=== PATIENT | female | born 1955 | race Caucasian/White ===

== ENCOUNTER 2016-10-24 09:59 | Outpatient (CLI) | payer OTHER | END 2016-10-24 10:00 | disposition home or self-care (01) | DX: M85.80 Other specified disorders of bone density and structure, unspecified site (principal); Z78.0 Asymptomatic menopausal state ==

== ENCOUNTER 2016-11-08 09:54 | Outpatient (CLI) | payer OTHER | END 2016-11-08 09:55 | disposition home or self-care (01) | DX: M54.9 Dorsalgia, unspecified (principal) ==

== ENCOUNTER 2017-06-07 08:08 | Outpatient (CLI) | payer OTHER ==
--- NOTE | 2017-06-27 12:34 | Mammography Report ---
DIGITAL BILATERAL SCREENING MAMMOGRAM: 06/07/2017 COMPARISON STUDY: None. TECHNIQUE: Bilateral MLO and CC breast views. FINDINGS: In the right upper anterior breast at superficial depth, seen on the MLO view only, is a f ocus of architectural distortion. No mass or concerning cluster of microcalcifications is seen in other regards. IMPRESSION: 1. BIRADS CATEGORY 0 - ADDITIONAL IMAGING IS REQUIRED. 2. RECOMMEND SPOT COMPRESSION VIEWS OF THE RIGHT UPPER BREAST AT ANTERIOR DEPTH TO EVALUATE A POSSIB LE AREA OF ARCHITECTURAL DISTORTION. IF CLINICALLY DESIRED, HOWEVER, THREE-DIMENSIONAL TOMOGRAPHIC B REAST IMAGING MAY BE CONSIDERED, BUT IS NOT AVAILABLE AT THIS FACILITY. STANDARD QUALIFYING STATEMENTS 1. This examination was reviewed with the aid of Computer-Aided Detection (CAD). 2. A negative or benign imaging report should not delay biopsy if clinically suspicious findings are present. Consider surgical consultation if warranted. More than 5% of cancers are not identified by i maging. 3. Dense breasts may obscure an underlying neoplasm. JOB #: [id number] EXT JOB #:[id number]
== END 2017-06-07 08:09 | disposition home or self-care (01) ==
LOC: DI 08:08
PROVIDERS: ATTEND Physician Assistant Medical
DX: Z12.31 Encounter for screening mammogram for malignant neoplasm of breast (principal); R92.8 Other abnormal and inconclusive findings on diagnostic imaging of breast
CPT/HCPCS: 77067

== ENCOUNTER 2017-06-08 07:35 | Outpatient (CLI) | payer OTHER ==
[2017-06-08 07:54] LABS: BASOPHILS # (AUTO) 0.1 10^3/uL (0.0-0.1); BASOPHILS % (AUTO) 1.1 %; EOSINOPHILS # (AUTO) 0.3 10^3/uL (0.0-0.7); EOSINOPHILS % (AUTO) 4.3 %; HGB - HEMOGLOBIN 13.9 g/dL (12.0-16.0); LYMPHOCYTES # (AUTO) 1.8 10^3/uL (1.5-3.5); LYMPHOCYTES % (AUTO) 30.2 %; MEAN CORPUSCULAR HEMOGLOBIN 25.9 pg (27.0-31.0); MEAN CORPUSCULAR HGB CONC 32.4 g/dL (32.0-36.0); MEAN CORPUSCULAR VOLUME 79.8 fL (81.0-99.0); MEAN PLATELET VOLUME 8.1 fL (7.9-10.8); MONOCYTES # (AUTO) 0.3 10^3/uL (0.0-1.0); MONOCYTES % (AUTO) 5.2 %; NEUTROPHILS # (AUTO) 3.6 10^3/uL (1.5-6.6); NEUTROPHILS % (AUTO) 59.2 %; NUCLEATED RED BLOOD CELLS AUTO 0.1 /100WBC; RED BLOOD COUNT 5.39 10^6/uL (4.20-5.40); RED CELL DISTRIBUTION WIDTH 15.5 % (12.0-15.0)
[2017-06-08 08:38] LABS: ALBUMIN/GLOBULIN RATIO 1.6 (1.0-2.2); BILIRUBIN,TOTAL 0.7 mg/dL (0.2-1.0); BUN - BLOOD UREA NITROGEN 15 mg/dL (6-20); CALCIUM 9.8 mg/dL (8.5-10.3); CARBON DIOXIDE - CO2 28 mmol/L (21-32); CHLORIDE 104 mmol/L (101-111); CHOL/HDL RATIO 3.7 (<4.4); CHOLESTEROL 227 mg/dL; GFR - MDRD 56 (>89); GLUCOSE 96 mg/dL (70-100); HDL CHOLESTEROL 61 mg/dL; LDL/HDL RATIO 2.2 (<4.4); POTASSIUM 4.6 mmol/L (3.5-5.0); SODIUM 141 mmol/L (135-145); TOTAL PROTEIN 7.4 g/dL (6.7-8.2); TRIGLYCERIDES 146 mg/dL; VLDL CHOLESTEROL 29 mg/dL
== END 2017-06-08 07:36 | disposition home or self-care (01) ==
LOC: LAB 07:35
PROVIDERS: ATTEND Physician Assistant Medical
DX: Z00.00 Encounter for general adult medical examination without abnormal findings (principal)
CPT/HCPCS: 36415; 80050; 80061

== ENCOUNTER 2017-07-12 13:56 | Outpatient (CLI) | payer OTHER ==
--- NOTE | 2017-07-12 16:00 | Mammography Report ---
DIAGNOSTIC RIGHT MAMMOGRAM: 07/12/2017 CLINICAL INDICATION: Possible architectural distortion right upper anterior breast. TECHNIQUE: Right true lateral, repeat MLO, spot compression views. COMPARISON: 06/07/2017 FINDINGS: The right breast again demonstrates heterogeneously dense fibroglandular parenchyma. The questioned architectural distortion in the right upper central breast does not persist on additional imaging. A coarse, typically benign calcification is present. No underlying mass lesion is identifi ed. IMPRESSION: BENIGN FINDINGS. RECOMMENDATION: Routine annual screening unless otherwise clinically indicated. BIRADS CATEGORY 2 - BENIGN FINDINGS. STANDARD QUALIFYING STATEMENTS 1. This examination was reviewed with the aid of Computer-Aided Detection (CAD). 2. A negative or benign imaging report should not delay biopsy if clinically suspicious findings are present. Consider surgical consultation if warranted. More than 5% of cancers are not identified by i maging. 3. Dense breasts may obscure an underlying neoplasm. JOB #: [id number] EXT JOB #:[id number]
== END 2017-07-12 13:57 | disposition home or self-care (01) ==
LOC: DI 13:56
PROVIDERS: ATTEND Physician Assistant Medical
DX: R92.8 Other abnormal and inconclusive findings on diagnostic imaging of breast (principal)

== ENCOUNTER 2017-08-19 12:33 | Emergency (ER) | payer OTHER ==
[2017-08-19] MEDS ORDERED: KETOROLAC 60 MG/2 ML VIAL IM STA (13:14)
[2017-08-19] MEDS ORDERED: DEXAMETHASONE 10 MG/ML VIAL PO STA (13:14)
--- NOTE | 2017-08-19 13:18 | ED Physician Documentation ---
PD HPI LOWER EXT INJURY - Stated complaint Stated Complaint: R LEG PX - Chief complaint Chief Complaint: Ext Problem - History obtained from History obtained from: Patient, Family - History of Present Illness PD HPI LOW EXT INJURY LOCATION: Right, Lower leg Type of injury: Other (excessive walking) Where injury occurred: Street Timing - onset: How many weeks ago (2) Timing - duration: Weeks (2) Timing - details: Gradual onset, Still present Improved by: Rest Worsened by: Moving, Other (weight bearing) Associated symptoms: No: Weakness, Numbness, Tingling, Swelling, Discolored Contributing factors: Other (on plavix) Similar symptoms before: Diagnosis (scaitica) Recently seen: Emergency Dept - Additional information Additional information: 62-year-old female with a prior history of complicated vascular disease was on vacation in [place] she went out on a walk and ended up walking much further than she expected. She walked about 3 miles. She had a bit of pain in her back and down her right leg following that and the next day went on a bicycle ride. She had significantly worse pain following that and went to the emergency department in [place]. She was diagnosed with sciatica and getting some Valium. She did not have relief of her pain with use of the Valium. She has had a resolution of the pain up in the hip and thigh and now the pain has settled to being just from the knee to the calf down to the ankle on the right lateral aspect the pain is worse with weightbearing and is not relieved with rest. She denies any history of claudication that is ever resulted in any pain. She does have fatigue of her legs but not pain. She does not have any change the color of the skin of the lower extremity and she does not have specific point tenderness to the lower extremity. Review of Systems Constitutional: denies: Fever Eyes: denies: Decreased vision Ears: denies: Ear pain Nose: denies: Congestion Throat: denies: Sore throat Cardiac: denies: Chest pain / pressure Respiratory: denies: Dyspnea, Cough GI: denies: Abdominal Pain, Nausea, Vomiting : denies: Dysuria, Frequency Skin: denies: Rash Musculoskeletal: reports: Back pain, Extremity pain, Pain with weight bearing. denies: Neck pain Neurologic: denies: Generalized weakness, Focal weakness, Numbness PD PAST MEDICAL HISTORY - Past Medical History Cardiovascular: Hypertension, Other Respiratory: COPD Neuro: None Endocrine/Autoimmune: None GI: None : Incontinence, Nocturia, Frequency HEENT: Dental implants Psych: None Musculoskeletal: Other Derm: None - Past Surgical History Past Surgical History: Yes General: Appendectomy /DEEP TISSUE MASSAGE THERAPIST: Tubal ligation Cardiovascular: AAA, Other - Present Medications Home Medications: Ambulatory Orders Medication Instructions Recorded Confirmed Metoprolol Succinate 100 mg PO BID 08/08/15 08/19/17 Clopidogrel [Plavix] 75 mg PO DAILY 08/19/17 08/19/17 HYDROcod/ACETAM 5/325 [Floyd 5/325] 1 - 2 ea PO Q6H PRN #15 tablet 08/19/17 - Allergies Allergies/Adverse Reactions: Allergies Allergy/AdvReac Type Severity Reaction Status Date / Time Penicillins Allergy Rash Verified 08/19/17 12:47 - Social History Does the pt smoke?: No Smoking Status: Former smoker Does the pt drink ETOH?: Yes Does the pt have substance abuse?: No PD ED PE NORMAL - Vitals Vital signs reviewed: Yes (Hypertensive) - General General: Alert and oriented X 3, No acute distress, Well developed/nourished - HEENT HEENT: Atraumatic, PERRL, EOMI - Respiratory Respiratory: No respiratory distress - Derm Derm: Normal color, Warm and dry, No rash - Extremities Extremities: No deformity, No tenderness to palpate, Normal ROM s pain, No edema , No calf tenderness / cord, Other (With compression of the lower extremity from the heel to the knee there is no change in the pain in the lateral calf. With weightbearing there is pain in the lateral calf worse. There is no pain in the sciatic notch or in the back and this had been painful previously.) - Neuro Neuro: Alert and oriented X 3, No motor deficit, No sensory deficit, Normal speech Eye Opening: Spontaneous Motor: Obeys Commands Verbal: Oriented GCS Score: 15 Results - Vitals Vitals: Vital Signs - 24 hr 08/19/17 08/19/17 12:43 12:50 Temperature 36.3 C L Heart Rate 68 Blood Pressure 135/64 H O2 Saturation 100 Oxygen O2 Source Room air PD MEDICAL DECISION MAKING - ED course Complexity details: reviewed old records, considered differential, d/w patient, d/w family ED course: 62-year-old female with what appears to be sciatica that is not resolved over the past 2 weeks. I am not able to elicit anything from the patient's history or examination that would that would indicate ischemic limb pain. I do suspect her diagnosis is sciatica and this appears to be progressing toward improvement with localization of the pain now isolated to the calf. She has no swelling of the leg ankle or foot and I am not concerned about DVT. Here in the emergency department today she is given a dose of dexamethasone 10 mg orally and 60 mg of Toradol IM. Departure - Departure Disposition: 01 Home, Self Care Clinical Impression: Sciatica Qualifiers: Laterality: right Qualified Code(s): M54.31 - Sciatica, right side Condition: Stable Instructions: ED Sciatica Follow-Up: Mala Flores PA-C [Primary Care Provider] - Prescriptions: HYDROcod/ACETAM 5/325 [Floyd 5/325] 1 - 2 ea PO Q6H PRN #15 tablet PRN Reason: Pain
[2017-08-19] MEDS ORDERED: CHERRY SYRUP 10 ML UDC PO ONE (13:26)
[2017-08-19 13:59] VITALS: BP 118/70
== END 2017-08-19 13:56 | disposition home or self-care (01) ==
LOC: ED 12:33
DX: M54.31 Sciatica, right side (principal); I10 Essential (primary) hypertension; J44.9 Chronic obstructive pulmonary disease, unspecified; Z87.891 Personal history of nicotine dependence
CPT/HCPCS: 96372; 99283; A9270

== ENCOUNTER 2018-06-11 07:28 | Outpatient (CLI) | payer MEDICARE, OTHER ==
[2018-06-11 07:53] LABS: BASOPHILS # (AUTO) 0.1 10^3/uL (0.0-0.1); EOSINOPHILS # (AUTO) 0.4 10^3/uL (0.0-0.7); EOSINOPHILS % (AUTO) 5.7 %; HGB - HEMOGLOBIN 12.8 g/dL (12.0-16.0); LYMPHOCYTES # (AUTO) 1.8 10^3/uL (1.5-3.5); LYMPHOCYTES % (AUTO) 26.8 %; MEAN CORPUSCULAR HEMOGLOBIN 26.4 pg (27.0-31.0); MEAN CORPUSCULAR HGB CONC 32.5 g/dL (32.0-36.0); MEAN CORPUSCULAR VOLUME 81.2 fL (81.0-99.0); MONOCYTES # (AUTO) 0.4 10^3/uL (0.0-1.0); MONOCYTES % (AUTO) 5.3 %; NEUTROPHILS # (AUTO) 4.2 10^3/uL (1.5-6.6); NEUTROPHILS % (AUTO) 61.2 %; PLT - PLATELET COUNT 232 10^3/uL (130-450); RED BLOOD COUNT 4.83 10^6/uL (4.20-5.40); RED CELL DISTRIBUTION WIDTH 15.2 % (12.0-15.0); WHITE BLOOD COUNT 6.8 x10^3/uL (4.8-10.8)
[2018-06-11 08:19] LABS: % IRON SATURATION 12 % (20-50); ALBUMIN 4.5 g/dL (3.2-5.5); ALBUMIN/GLOBULIN RATIO 1.5 (1.0-2.2); ALKALINE PHOSPHATASE 72 IU/L (42-121); ALT ALANINE AMINOTRANSFERASE 11 IU/L (10-60); AST ASPARTATE AMINOTRANSFERASE 17 IU/L (10-42); BILIRUBIN,TOTAL 0.6 mg/dL (0.2-1.0); BUN - BLOOD UREA NITROGEN 16 mg/dL (6-20); CALCIUM 9.4 mg/dL (8.5-10.3); CARBON DIOXIDE - CO2 28 mmol/L (21-32); CHLORIDE 101 mmol/L (101-111); CHOL/HDL RATIO 3.4 (<4.4); CHOLESTEROL 238 mg/dL; CREATININE 0.9 mg/dL (0.4-1.0); GFR - MDRD 63 (>89); GLUCOSE 99 mg/dL (70-100); HDL CHOLESTEROL 70 mg/dL; IRON 50 ug/dL (28-170); LDL CHOLESTEROL,CALCULATED 141 mg/dL; SODIUM 137 mmol/L (135-145); TOTAL IRON BINDING CAPACITY 421 ug/dL (250-450); TOTAL PROTEIN 7.6 g/dL (6.7-8.2); TRANSFERRIN 301 mg/dL (192-382); VLDL CHOLESTEROL 27 mg/dL
== END 2018-06-11 07:29 | disposition home or self-care (01) ==
LOC: LAB 07:28
PROVIDERS: ATTEND Physician Assistant
DX: Z00.00 Encounter for general adult medical examination without abnormal findings (principal); I10 Essential (primary) hypertension; D64.9 Anemia, unspecified; E78.2 Mixed hyperlipidemia
CPT/HCPCS: 36415; 80053; 80061; 83540; 83721; 84466; 85025

== ENCOUNTER 2018-07-15 09:45 | Outpatient (CLI) | payer MEDICARE, OTHER ==
--- NOTE | 2018-07-16 14:36 | Mammography Report ---
Reason: ANNUAL SCREENING Procedure Date: 07/15/2018 Accession Number: [id number] / [id number] Procedure: [facility] - Screening Mammo w/Ryne CPT Code: FULL RESULT: EXAM: Screening Mammo w/Ryne DATE: 07/15/2018 11:06 AM CLINICAL HISTORY: Routine screening. No reported personal or family history of breast cancer. TECHNIQUE: Bilateral CC and MLO views were obtained. COMPARISON: 06/07/2017 FINDINGS: The breasts demonstrate heterogeneously dense fibroglandular parenchyma bilaterally. Bilateral breasts: There are no suspicious masses, calcifications or areas of distortion. IMPRESSION: Negative examination RECOMMENDATION: Routine annual screening unless otherwise clinically indicated. BI-RADS CATEGORY 1: Negative STANDARD QUALIFYING STATEMENTS: 1. This examination was not reviewed with the aid of Computer-Aided Detection (CAD). 2. A negative or benign imaging report should not preclude biopsy if clinically suspicious findings are present. 3. Dense breasts may obscure an underlying neoplasm. 4. This examination was reviewed with the aid of 3D breast imaging (tomosynthesis).
== END 2018-07-15 09:46 | disposition home or self-care (01) ==
LOC: DI 09:45
PROVIDERS: ATTEND Physician Assistant Medical
DX: Z12.31 Encounter for screening mammogram for malignant neoplasm of breast (principal)
CPT/HCPCS: 77063; 77067

== ENCOUNTER 2018-11-02 20:42 | Outpatient (CLI) | payer MEDICARE, OTHER | END 2018-11-02 20:43 | disposition critical access hospital (66) | LOC: EMS 20:42 | PROVIDERS: ATTEND Surgery | DX: R07.9 Chest pain, unspecified (principal) | CPT/HCPCS: A0425; A0427 ==

== ENCOUNTER 2018-11-02 20:50 | Emergency (ER) | payer MEDICARE, OTHER ==
[2018-11-02] MEDS ORDERED: SODIUM CHLORIDE 0.9% 1,000 ML IV ONE (21:00)
[2018-11-02] MEDS ORDERED: ONDANSETRON 4 MG/2 ML VIAL IVP STA (21:00)
[2018-11-02] MEDS ORDERED: ONDANSETRON 4 MG/2 ML VIAL ONE (21:06)
--- NOTE | 2018-11-02 21:09 | ED Physician Documentation ---
PD HPI CHEST PAIN - Stated complaint Stated Complaint: CP - Chief complaint Chief Complaint: Cardiac - History obtained from History obtained from: Patient, Family - History of Present Illness Timing - onset: Enter time (1800), Today Timing - onset during: Rest Timing - duration: Hours Timing - details: Abrupt onset, Still present Quality: Sharp, Pain Location: Right chest Radiation: Back Improved by: Rest Worsened by: Inspiration, Movement, Palpation, Position Associated symptoms: Shortness of air, Nausea, Feeling faint / dizzy Similar symptoms before: Diagnosis (aortic disection) Recently seen: Not recently seen - Additional information Additional information: 63-year-old female who has had aortic dissection and endovascular stenting of both abdomen and thoracic aorta done in 2014 in 2016 was well and doing her usual activities and last night began to feel fatigued. This evening at approximately 6 PM she began to have pain in her right chest and this is become severe and she is developed some nausea as well. Review of Systems Constitutional: denies: Fever Eyes: denies: Decreased vision Ears: denies: Ear pain Nose: denies: Rhinorrhea / runny nose, Congestion Throat: denies: Oral lesions / sores, Sore throat Cardiac: reports: Chest pain / pressure. denies: Palpitations, Pedal edema, Calf pain Respiratory: denies: Dyspnea, Cough GI: reports: Abdominal Pain, Nausea, Vomiting : denies: Dysuria PD PAST MEDICAL HISTORY - Past Medical History Cardiovascular: Hypertension, Other Respiratory: COPD Endocrine/Autoimmune: None GI: None : Incontinence, Nocturia, Frequency HEENT: Dental implants Psych: None Musculoskeletal: Other Derm: None - Past Surgical History Past Surgical History: Yes General: Appendectomy /SENIOR INTERIOR DESIGNER: Tubal ligation Cardiovascular: AAA, Other - Present Medications Home Medications: Ambulatory Orders Medication Instructions Recorded Confirmed RX: Metoprolol Succinate 100 mg PO BID 08/08/15 11/02/18 Clopidogrel [Plavix] 75 mg PO DAILY 08/19/17 11/02/18 RX: Lisinopril 20 mg PO DAILY 11/02/18 11/02/18 - Allergies Allergies/Adverse Reactions: Allergies Allergy/AdvReac Type Severity Reaction Status Date / Time Penicillins Allergy Rash Verified 11/02/18 21:00 - Social History Does the pt smoke?: No Smoking Status: Never smoker Does the pt drink ETOH?: Yes Does the pt have substance abuse?: No - Immunizations Immunizations are current?: Yes PD ED PE NORMAL - Vitals Vital signs reviewed: Yes (hypotensive ) - General General: Alert and oriented X 3, Well developed/nourished, Other (appears pale and in acute distress.) - HEENT HEENT: Atraumatic, PERRL, EOMI - Neck Neck: Supple, no meningeal sign, No bony TTP - Cardiac Cardiac: RRR, Other (2/6 holosystolic murmer at LSB) - Respiratory Respiratory: Other (tachypneic with diminished breath sounds ) - Abdomen Abdomen: Soft, Other (tender in right flant ) - Back Back: No spinal TTP - Derm Derm: Normal color, Warm and dry, No rash - Extremities Extremities: No deformity, No edema - Neuro Neuro: Alert and oriented X 3, relocation specialist 2-12 intact, No motor deficit, No sensory deficit, Normal speech Eye Opening: Spontaneous Motor: Obeys Commands Verbal: Oriented GCS Score: 15 - Psych Psych: Normal mood, Normal affect Results - Vitals Vitals: Vital Signs - 24 hr 11/02/18 11/02/18 11/02/18 20:50 21:11 21:30 Temperature 35.7 C L 35.9 C L Heart Rate 74 66 62 Respiratory 16 14 18 Rate Blood Pressure 70/60 L 81/61 L 112/56 L O2 Saturation 100 100 100 11/02/18 11/02/18 11/02/18 22:00 22:30 23:00 Temperature Heart Rate 54 L 57 L 56 L Respiratory 16 18 18 Rate Blood Pressure 92/45 L 92/48 L 83/42 L O2 Saturation 99 100 100 Oxygen O2 Source Nasal cannula Oxygen Flow Rate 3 - EKG (time done) 2130 Rate: Rate (enter#) (85) Rhythm: NSR Ischemia: Q waves Compare to prior EKG: Changed from prior EKG (SPT 10-23-15 rate has increased) Computer interpretation: Agree with computer - Labs Labs: Laboratory Tests 11/02/18 11/02/18 11/02/18 21:08 21:08 21:08 WBC 9.2 RBC 3.71 L Hgb 9.9 L Hct 30.1 L MCV 81.2 MCH 26.8 L MCHC 33.0 RDW 15.1 H Plt Count 220 MPV 8.2 Neut # (Auto) 5.0 Lymph # (Auto) 3.0 Fajardo # (Auto) 0.5 Eos # (Auto) 0.5 Baso # (Auto) 0.1 Absolute Nucleated RBC 0.00 Nucleated RBC % 0.0 D-Dimer Sodium 135 Potassium 3.8 Chloride 102 Carbon Dioxide 23 Anion Gap 10.0 BUN 20 Creatinine 1.3 H Estimated GFR (MDRD) 41 L Glucose 201 H Calcium 8.7 Total Bilirubin 0.6 AST 21 ALT < 10 L Alkaline Phosphatase 53 Troponin I < 0.04 B-Natriuretic Peptide Total Protein 6.0 L Albumin 3.7 Globulin 2.3 Albumin/Globulin Ratio 1.6 Lipase 54 H Blood Type Antibody Screen Crossmatch IS Only 11/02/18 11/02/18 11/02/18 21:08 21:08 22:20 WBC RBC Hgb Hct MCV MCH MCHC RDW Plt Count MPV Neut # (Auto) Lymph # (Auto) Fajardo # (Auto) Eos # (Auto) Baso # (Auto) Absolute Nucleated RBC Nucleated RBC % D-Dimer > 1050.0 H Sodium Potassium Chloride Carbon Dioxide Anion Gap BUN Creatinine Estimated GFR (MDRD) Glucose Calcium Total Bilirubin AST ALT Alkaline Phosphatase Troponin I B-Natriuretic Peptide 204 H Total Protein Albumin Globulin Albumin/Globulin Ratio Lipase Blood Type A NEGATIVE Antibody Screen NEGATIVE Crossmatch IS Only See Detail 11/02/18 22:20 WBC RBC Hgb 7.9 L Hct 25.2 L MCV MCH MCHC RDW Plt Count MPV Neut # (Auto) Lymph # (Auto) Fajardo # (Auto) Eos # (Auto) Baso # (Auto) Absolute Nucleated RBC Nucleated RBC % D-Dimer Sodium Potassium Chloride Carbon Dioxide Anion Gap BUN Creatinine Estimated GFR (MDRD) Glucose Calcium Total Bilirubin AST ALT Alkaline Phosphatase Troponin I B-Natriuretic Peptide Total Protein Albumin Globulin Albumin/Globulin Ratio Lipase Blood Type Antibody Screen Crossmatch IS Only - Rads (name of study) CT chest and abdomen angio Radiology: Discussed with rads, EMP read indepedently (endovascular leak just above the diaphram looks like it stops a few cm and there is fluid extensively in the right chest. ) Procedures - Bedside sono Bedside sono by EMP: With use of bedside ultrasound the aorta is imaged and there is a thin rim of fluid surrounding the aorta potentially related to her known endovascular leak.The right kidney is imaged there is sonographic tenderness to the area there does appear to be fluid in the lung cavity and not in the abdominal cavity - IVC sono (time) 2100 Bedside IVC sono: IVC measures (cm) (0.7), IVC collapsed c insp (cm) (complete), Significant dehydration (est 3 liter deficit) PD MEDICAL DECISION MAKING - ED course Complexity details: reviewed old records, reviewed results, re-evaluated patient, considered differential, d/w patient, d/w family ED course: 63-year-old female with extensive aortic grafting has developed an endovascular leak she is dropped her crit 10 points she is in extreme pain and hypotensive. She is volume depleted and saline is administered as well as dilaudid. The transfer center is contacted shortly after arrival and they are not able to load images to determine the need for specific surgical interventions and the correct hospital to send this complicated lady to. Dr. Gutierrez Vazquez is the accepting and she recommends transfusion for systolic of 80. The patient is loaded into [facility] appearing pale in pain and with a guarded prognosis. Departure - Departure Disposition: 02 Transfer Acute Care Hosp Clinical Impression: Endoleak post endovascular aneurysm repair Condition: Critical Discharge Date/Time: 11/02/18 23:09
[2018-11-02] MEDS ORDERED: IOVERSOL 320 100 ML VIAL IVP ONE ×2 (21:16→21:46)
[2018-11-02 21:17] LABS: BASOPHILS # (AUTO) 0.1 10^3/uL (0.0-0.1); BASOPHILS % (AUTO) 1.1 %; EOSINOPHILS # (AUTO) 0.5 10^3/uL (0.0-0.7); EOSINOPHILS % (AUTO) 5.4 %; HGB - HEMOGLOBIN 9.9 g/dL (12.0-16.0); LYMPHOCYTES % (AUTO) 32.9 %; MEAN CORPUSCULAR HEMOGLOBIN 26.8 pg (27.0-31.0); MEAN CORPUSCULAR VOLUME 81.2 fL (81.0-99.0); MEAN PLATELET VOLUME 8.2 fL (7.9-10.8); MONOCYTES # (AUTO) 0.5 10^3/uL (0.0-1.0); MONOCYTES % (AUTO) 5.6 %; PLT - PLATELET COUNT 220 10^3/uL (130-450); RED BLOOD COUNT 3.71 10^6/uL (4.20-5.40); RED CELL DISTRIBUTION WIDTH 15.1 % (12.0-15.0); WHITE BLOOD COUNT 9.2 x10^3/uL (4.8-10.8)
[2018-11-02 21:29] LABS: ALBUMIN 3.7 g/dL (3.2-5.5); ALBUMIN/GLOBULIN RATIO 1.6 (1.0-2.2); ALKALINE PHOSPHATASE 53 IU/L (42-121); ALT ALANINE AMINOTRANSFERASE < 10 IU/L (10-60); AST ASPARTATE AMINOTRANSFERASE 21 IU/L (10-42); BILIRUBIN,TOTAL 0.6 mg/dL (0.2-1.0); BUN - BLOOD UREA NITROGEN 20 mg/dL (6-20); CALCIUM 8.7 mg/dL (8.5-10.3); CARBON DIOXIDE - CO2 23 mmol/L (21-32); CHLORIDE 102 mmol/L (101-111); CREATININE 1.3 mg/dL (0.4-1.0); GFR - MDRD 41 (>89); GLUCOSE 201 mg/dL (70-100); LIPASE 54 U/L (22-51); SODIUM 135 mmol/L (135-145)
[2018-11-02] MEDS ORDERED: HYDROmorphone 1 MG/ML CARPUJECT IVP STA ×2 (21:37→22:25)
[2018-11-02] MEDS ORDERED: PROMETHAZINE INJ 25 MG in SODIUM CHLORIDE 0.9% 50 ML IV STA (22:27)
[2018-11-02 22:28] LABS: HGB - HEMOGLOBIN 7.9 g/dL (12.0-16.0)
--- NOTE | 2018-11-02 22:30 | CT Report ---
Reason: hx of disection severe pain bp dif R<L Procedure Date: 11/02/2018 Accession Number: [id number] / [id number] Procedure: CT - ANGIO ABDOMEN W/WO CPT Code: FULL RESULT: EXAM: CT ANGIOGRAM CHEST, ABDOMEN, AND PELVIS WITH AND WITHOUT CONTRAST EXAM DATE: 11/02/2018 09:26 PM. CLINICAL HISTORY: Hx of dissection severe pain bp dif RL. COMPARISON: ABDOMEN/PELVIS ANGIO 08/07/2015 7:14 AM CHEST W/O 11/02/2018 10:02 PM. TECHNIQUE: Routine helical imaging was performed through the chest, abdomen, and pelvis with and without contrast in the arterial phase. IV Contrast: 100 ML OPTIRAY 320. Reconstructions: Coronal 3-D MIP reconstructions.Sagittal and coronal. In accordance with CT protocol optimization, one or more of the following dose reduction techniques were utilized for this exam: automated exposure control, adjustment of mA and/or KV based on patient size, or use of iterative reconstructive technique. FINDINGS: Vascular: Status post ascending aortic repair with graft. Jump graft from the graft to the patent major branch arteries. Patent left carotid to subclavian bypass. There is an aortic stent graft within the arch and descending thoracic aorta, terminating in the suprarenal abdominal aorta. There is active extravasation of contrast from the right anterolateral portion of the distal thoracic aortic graft (), extravasating into the right pleural space with a large right acute hemothorax. There is also acute hematoma expanding the descending thoracic aorta, with increase in aortic diameter to 7 cm, previously measuring up to 6.2 cm. Main pulmonary artery diameter is normal caliber. No central pulmonary embolus. Abdominal aorta is normal caliber. A jump graft from the distal aorta and the left common iliac artery supplies the bilateral renal arteries as well as the SMA. Celiac branch arteries fill by collaterals. Celiac portion of the graft is thrombosed as before. Lungs/Pleura: There is a large right acute hemothorax. Diffuse severe emphysema. Mediastinum: No mediastinal or hilar lymphadenopathy. Heart size is within normal limits. No pericardial effusion. Visualized thyroid is unremarkable. No endobronchial or endotracheal lesion. Abdomen: Liver, spleen, pancreas, bilateral adrenal glands, gallbladder, and bilateral kidneys are unremarkable. No intestinal obstruction or inflammation. Colonic diverticulosis. No free fluid, collection, or adenopathy. Pelvis: Calcified fibroids within the uterus. Partially distended urinary bladder is grossly unremarkable. No pelvic lymphadenopathy or fluid collection. Bones: No suspicious osseous lesions. IMPRESSION: Descending thoracic aortic graft rupture with active extravasation of contrast outside the aortic graft into the aneurysm sac and causing a large right hemothorax. There is expansion of the thoracic aneurysm sac since the prior. Emergent surgical consultation is recommended. RADIA The above critical result findings were immediately discussed with Rafat Reynolds by Dr. Issa Menjivar at 10:02 PM on 11/02/2018. A delayed CT scan would not provide further relevant information, as contrast is seen to extravasate outside the graft and the aortic wall with a large right acute hemothorax and acute hemorrhage within the thoracic aneurysm sac, with expansion of the thoracic aneurysm. Emergent surgical consultation is recommended.
--- NOTE | 2018-11-02 23:07 | CT Report ---
Reason: ?contrast leaking further Procedure Date: 11/02/2018 Accession Number: [id number] / [id number] Procedure: CT - CHEST WO CPT Code: FULL RESULT: EXAM: CT CHEST WITHOUT CONTRAST EXAM DATE: 11/02/2018 10:02 PM. CLINICAL HISTORY: ?contrast leaking further. COMPARISONS: CHEST ANGIO 11/02/2018 9:26 PM. TECHNIQUE: Routine helical CT imaging was performed through the chest. IV contrast: None. Reconstructions: Coronal and sagittal. In accordance with CT protocol optimization, one or more of the following dose reduction techniques were utilized for this exam: automated exposure control, adjustment of mA and/or KV based on patient size, or use of iterative reconstructive technique. FINDINGS: There is contrast extending into and expanding hematoma in the posterior mediastinum adjacent to the aorta and esophagus as well as within the large right hemothorax and within the aneurysm sac outside the aortic stent graft. The degree of mediastinal hemorrhage has increased, for instance measuring up to approximately 10.3 x 3.5 cm (), measuring 9.8 x 2.2 cm at this level previously. Aeration of the lungs is stable. Severe emphysema. IMPRESSION: Active extravasation of contrast from previously demonstrated descending thoracic graft rupture into the aneurysm sac, mediastinum, and into the large right hemothorax. As noted previously on the earlier CT, emergent surgical consultation is recommended. RADIA
[2018-11-02 23:09] VITALS: BP 83/42
== END 2018-11-02 23:09 | disposition short-term general hospital (02) ==
LOC: EDUNIT# → EDBD → ED 20:50
DX: T82.897A Other specified complication of cardiac prosthetic devices, implants and grafts, initial encounter (principal); E86.0 Dehydration; I95.9 Hypotension, unspecified; I10 Essential (primary) hypertension
CPT/HCPCS: 36415; 71250; 71275; 74174; 74175; 80053; 83690; 83880; 84484; 85014; 85018; 85025; 85379; 86850; 86900; 86901; 86920; 93005; 96361; 96374; 96375; 96376; 99284; J1170; J7040; Q9967; 99285

== ENCOUNTER 2018-11-21 12:10 | Outpatient (CLI) | payer MEDICARE, OTHER ==
[2018-11-21 18:48] LABS: BASOPHILS # (AUTO) 0.1 10^3/uL (0.0-0.1); BASOPHILS % (AUTO) 1.3 %; EOSINOPHILS # (AUTO) 0.4 10^3/uL (0.0-0.7); EOSINOPHILS % (AUTO) 5.9 %; HGB - HEMOGLOBIN 10.7 g/dL (12.0-16.0); LYMPHOCYTES # (AUTO) 1.8 10^3/uL (1.5-3.5); LYMPHOCYTES % (AUTO) 27.4 %; MEAN CORPUSCULAR HEMOGLOBIN 27.8 pg (27.0-31.0); MEAN CORPUSCULAR HGB CONC 32.3 g/dL (32.0-36.0); MEAN CORPUSCULAR VOLUME 86.1 fL (81.0-99.0); MEAN PLATELET VOLUME 7.2 fL (7.9-10.8); MONOCYTES # (AUTO) 0.5 10^3/uL (0.0-1.0); MONOCYTES % (AUTO) 7.9 %; NEUTROPHILS # (AUTO) 3.9 10^3/uL (1.5-6.6); NEUTROPHILS % (AUTO) 57.5 %; PLT - PLATELET COUNT 470 10^3/uL (130-450); RED BLOOD COUNT 3.84 10^6/uL (4.20-5.40); RED CELL DISTRIBUTION WIDTH 16.9 % (12.0-15.0); WHITE BLOOD COUNT 6.7 x10^3/uL (4.8-10.8)
[2018-11-21 19:25] LABS: ALBUMIN 3.9 g/dL (3.2-5.5); ALBUMIN/GLOBULIN RATIO 1.1 (1.0-2.2); BILIRUBIN,TOTAL 0.7 mg/dL (0.2-1.0); CALCIUM 9.4 mg/dL (8.5-10.3); TOTAL PROTEIN 7.3 g/dL (6.7-8.2)
== END 2018-11-21 12:11 | disposition home or self-care (01) ==
LOC: LAB.WCP 12:10
PROVIDERS: ATTEND Physician Assistant Medical
DX: I71.4 Abdominal aortic aneurysm, without rupture (principal); D64.9 Anemia, unspecified
CPT/HCPCS: 36415; 80053; 82728; 83540; 84466; 85025

== ENCOUNTER 2019-01-01 13:44 | Outpatient (CLI) | payer MEDICARE, OTHER ==
--- NOTE | 2019-01-02 14:40 | XRAY Report ---
Reason: RIB PAIN,RIGHT AND LEFT SIDED Procedure Date: 01/01/2019 Accession Number: [id number] / [id number] Procedure: [facility] - Ribs Bilat w/Chest 4 View CPT Code: FULL RESULT: EXAM: BILATERAL RIB RADIOGRAPHY EXAM DATE: 01/01/2019 01:59 PM. CLINICAL HISTORY: Bilateral chest wall pain. COMPARISON: ABDOMEN/PELVIS ANGIO 11/02/2018 10:30 PM ABDOMEN ANGIO 11/02/2018 9:26 PM. TECHNIQUE: 1 view of the chest and 2 views of the ribs. FINDINGS: Bones: No rib fracture or chest wall deformity is identified. Postoperative changes related to median sternotomy and CABG are seen. Lungs: No focal opacities. No pneumothorax. No pleural effusions. Mediastinum: Endovascular stent graft repair is present in the aortic arch and descending thoracic aorta. Tortuosity and aneurysmal dilation of the descending thoracic aorta are again noted. Other: None. IMPRESSION: 1. No rib fracture or chest wall deformity demonstrated status post CABG and endovascular aortic stent graft repair. 2. No acute cardiopulmonary abnormality identified. RADIA
== END 2019-01-01 13:45 | disposition home or self-care (01) ==
LOC: DI.WCP 13:44
PROVIDERS: ATTEND Physician Assistant Medical
DX: R07.81 Pleurodynia (principal); Z95.1 Presence of aortocoronary bypass graft; Z95.5 Presence of coronary angioplasty implant and graft; K21.9 Gastro-esophageal reflux disease without esophagitis
CPT/HCPCS: 36415; 71111; 80053; 85025

== ENCOUNTER 2019-01-01 14:11 | Outpatient (CLI) | payer MEDICARE, OTHER ==
[2019-01-01 18:48] LABS: BASOPHILS # (AUTO) 0.1 10^3/uL (0.0-0.1); BASOPHILS % (AUTO) 1.6 %; EOSINOPHILS # (AUTO) 0.2 10^3/uL (0.0-0.7); EOSINOPHILS % (AUTO) 2.8 %; HGB - HEMOGLOBIN 11.9 g/dL (12.0-16.0); LYMPHOCYTES # (AUTO) 1.7 10^3/uL (1.5-3.5); LYMPHOCYTES % (AUTO) 29.6 %; MEAN CORPUSCULAR HEMOGLOBIN 26.9 pg (27.0-31.0); MEAN CORPUSCULAR HGB CONC 32.1 g/dL (32.0-36.0); MEAN CORPUSCULAR VOLUME 83.7 fL (81.0-99.0); MEAN PLATELET VOLUME 8.3 fL (7.9-10.8); MONOCYTES # (AUTO) 0.3 10^3/uL (0.0-1.0); MONOCYTES % (AUTO) 5.6 %; NEUTROPHILS # (AUTO) 3.5 10^3/uL (1.5-6.6); NEUTROPHILS % (AUTO) 60.4 %; PLT - PLATELET COUNT 262 10^3/uL (130-450); RED BLOOD COUNT 4.44 10^6/uL (4.20-5.40); RED CELL DISTRIBUTION WIDTH 15.1 % (12.0-15.0); WHITE BLOOD COUNT 5.8 x10^3/uL (4.8-10.8)
[2019-01-01 18:59] LABS: ALBUMIN 4.4 g/dL (3.2-5.5); ALBUMIN/GLOBULIN RATIO 1.5 (1.0-2.2); BILIRUBIN,TOTAL 0.6 mg/dL (0.2-1.0); CREATININE 0.9 mg/dL (0.4-1.0); TOTAL PROTEIN 7.3 g/dL (6.7-8.2)
[2019-01-01 19:09] LABS: CALCIUM 9.7 mg/dL (8.5-10.3)
== END 2019-01-01 14:12 | disposition home or self-care (01) ==
LOC: LAB.WCP 14:11
PROVIDERS: ATTEND Physician Assistant Medical
DX: K21.9 Gastro-esophageal reflux disease without esophagitis (principal)
CPT/HCPCS: 36415; 80053; 85025

== ENCOUNTER 2019-08-19 09:00 | Outpatient (CLI) | payer MEDICARE, OTHER ==
--- NOTE | 2019-08-20 10:53 | Mammography Report ---
Reason: SCREENING MAMMO Procedure Date: 08/19/2019 Accession Number: [id number] / [id number] Procedure: [facility] - Screening Mammo w/Ryne CPT Code: Final Report FULL RESULT: EXAM: Screening Mammo w/Ryne DATE: 08/19/2019 9:34 AM CLINICAL HISTORY: Routine screening TECHNIQUE: (B) - Bilateral CC and MLO views were obtained. COMPARISON: 07/15/2018, 07/12/2017, 06/07/2017. PARENCHYMAL PATTERN: (VD) - The breasts demonstrate extremely dense parenchyma bilaterally, limiting the sensitivity of mammography. FINDINGS: No significant interval change. There are no suspicious masses, calcifications, or areas of distortion. A stable 1.8 x 3.3 x 2.5 cm lucency in the 6:00 position right breast likely represents a lipoma. IMPRESSION: Negative examination. BI-RADS category 1. RECOMMENDATION: (ANNUAL) - Recommend routine annual screening mammography. BI-RADS CATEGORY: (1) - Negative. STANDARD QUALIFYING STATEMENTS: 1. This examination was not reviewed with the aid of Computer-Aided Detection (CAD). 2. A negative or benign imaging report should not preclude biopsy if clinically suspicious findings are present. 3. Dense breasts may obscure an underlying neoplasm. 4. This examination was reviewed with the aid of 3D breast imaging (tomosynthesis).
== END 2019-08-19 09:01 | disposition home or self-care (01) ==
LOC: DI 09:00
DX: Z12.31 Encounter for screening mammogram for malignant neoplasm of breast (principal)
CPT/HCPCS: 77063; 77067

== ENCOUNTER 2020-11-04 11:17 | Outpatient (CLI) | payer MEDICARE, OTHER ==
--- NOTE | 2020-11-05 11:43 | Mammography Report ---
BILATERAL DIGITAL SCREENING MAMMOGRAM 3D/2D: 11/04/2020 CLINICAL: Routine screening. Comparison is made to exams dated: 08/19/2019 mammogram, 07/15/2018 mammogram, 07/12/2017 mammogram, and 06/07/2017 mammogram - [facility]. The tissue of both breasts is predominantly fatty. No significant masses, calcifications, or other findings are seen in either breast. A stable 1.8 x 3 .3 x 2.5 cm lucency in the 6:00 position right breast likely represents a lipoma. There has been no significant interval change. IMPRESSION: BENIGN There is no mammographic evidence of malignancy. A 1 year screening mammogram is recommended. This exam was interpreted at Station ID: [id number]. NOTE: For mammograms, a report in lay terms will be sent to the patient. Approximately 15% of breast malignancies will not be visualized mammographically. In the management of a palpable breast mass, a negative mammogram must not discourage biopsy of a clinically suspicious lesion. Electronically Signed By: Rodriguez Power acr/:11/04/2020 12:06:27 ACR BI-RADS Category 2: Benign Finding(s) 3342F PARENCHYMAL PATTERN: (F) - The breast(s) demonstrate(s) diffuse fatty replacement. BI-RADS CATEGORY: (2) - 2 RECOMMENDATION: (ANNUAL) - Recommend routine annual screening mammography. [id number] 1 year screening LATERALITY: (B)
== END 2020-11-04 11:18 | disposition home or self-care (01) ==
LOC: DI 11:17
DX: Z12.31 Encounter for screening mammogram for malignant neoplasm of breast (principal)

== ENCOUNTER 2021-01-09 09:50 | Observation (INO) | payer MEDICARE, OTHER ==
[2021-01-09] MEDS ORDERED: SODIUM CHLORIDE 0.9% 1,000 ML IV STA (10:07)
[2021-01-09 10:26] LABS: BASOPHILS # (AUTO) 0.1 10^3/uL (0.0-0.1); BASOPHILS % (AUTO) 1.1 %; EOSINOPHILS # (AUTO) 0.3 10^3/uL (0.0-0.7); EOSINOPHILS % (AUTO) 5.3 %; HCT - HEMATOCRIT 41.3 % (37.0-47.0); HGB - HEMOGLOBIN 12.8 g/dL (12.0-16.0); LYMPHOCYTES # (AUTO) 1.9 10^3/uL (1.5-3.5); LYMPHOCYTES % (AUTO) 30.9 %; MEAN CORPUSCULAR HEMOGLOBIN 26.1 pg (27.0-31.0); MEAN CORPUSCULAR VOLUME 84.1 fL (81.0-99.0); MEAN PLATELET VOLUME 9.6 fL (7.9-10.8); MONOCYTES # (AUTO) 0.4 10^3/uL (0.0-1.0); MONOCYTES % (AUTO) 6.1 %; NEUTROPHILS # (AUTO) 3.5 10^3/uL (1.5-6.6); NEUTROPHILS % (AUTO) 56.3 %; PLT - PLATELET COUNT 216 10^3/uL (130-450); RED BLOOD COUNT 4.91 10^6/uL (4.20-5.40); RED CELL DISTRIBUTION WIDTH 15.1 % (12.0-15.0); WHITE BLOOD COUNT 6.2 x10^3/uL (4.8-10.8)
[2021-01-09 10:41] LABS: ALBUMIN 4.1 g/dL (3.2-5.5); ALBUMIN/GLOBULIN RATIO 1.5 (1.0-2.2); BILIRUBIN,TOTAL 0.5 mg/dL (0.2-1.0); CALCIUM 9.3 mg/dL (8.5-10.3); CREATININE 1.2 mg/dL (0.4-1.0); POTASSIUM 4.2 mmol/L (3.5-5.0); TOTAL PROTEIN 6.8 g/dL (6.7-8.2)
--- NOTE | 2021-01-09 10:53 | XRAY Report ---
PROCEDURE: Chest 1 View X-Ray INDICATIONS: Chest Pain TECHNIQUE: One view of the chest was acquired. COMPARISON: 11/02/2018 CT chest FINDINGS: Surgical changes and devices: Median sternotomy changes. Multisegment stent grafting of the thoracic and upper abdominal aorta. Lungs and pleura: No acute airspace opacity. No pleural effusion or pneumothorax. Mediastinum: Mediastinal contours are within normal limits. Heart size is normal. Bones and chest wall: No suspicious bony lesions. Overlying soft tissues appear unremarkable. IMPRESSION: No acute cardiac pulmonary process demonstrated radiographically. Reviewed by: Austin Weathers MD on 01/09/2021 10:52 AM PDT Approved by: Austin Weathers MD on 01/09/2021 10:52 AM PDT Station ID: [id number]
--- NOTE | 2021-01-09 12:13 | ED Physician Documentation ---
History of Present Illness - Stated complaint Stated Complaint: DIZZINESS - Chief complaint Chief Complaint: Neuro - History obtained from History obtained from: Patient - Additonal information Additional information: 65-year-old woman with history of 2015 aortic valve repair, 2019 aortic dissection, presents with presyncopal episode when getting out of a chair this morning. She was reading a book and then stood up and became lightheaded, staggering to the side. This episode lasted for 5 minutes, witnessed by her before gradually resolving. She denies chest pain, shortness of breath, nausea, diaphoresis, fever or other symptoms. She felt normal yesterday. Review of Systems Ten Systems: 10 systems reviewed and negative PD PAST MEDICAL HISTORY - Past Medical History Past Medical History: Yes Cardiovascular: Hypertension, Other Respiratory: COPD Neuro: None Endocrine/Autoimmune: None GI: None WEB ENGINEER: None : Incontinence, Nocturia, Frequency HEENT: Dental implants Psych: None Musculoskeletal: Other Derm: None Other Past Medical History: aortic arch adn abdominal anuerysms - Past Surgical History Past Surgical History: Yes General: Appendectomy /WEB ENGINEER: Tubal ligation Cardiovascular: AAA, Other - Present Medications Home Medications: Ambulatory Orders Medication Instructions Recorded Confirmed Metoprolol Succinate 50 mg PO DAILY 08/08/15 01/09/21 lisinopriL [Lisinopril] 20 mg PO DAILY 11/02/18 01/09/21 Aspirin EC [Ecotrin] 81 mg PO DAILY 01/09/21 01/09/21 - Allergies Allergies/Adverse Reactions: Allergies Allergy/AdvReac Type Severity Reaction Status Date / Time Penicillins Allergy Rash Verified 01/09/21 09:58 - Social History Does the pt smoke?: No Smoking Status: Current some day smoker Does the pt drink ETOH?: Yes Does the pt have substance abuse?: No - Immunizations Immunizations are current?: Yes PD ED PE NORMAL - Vitals Vital signs reviewed: Yes - General General: Alert and oriented X 3, No acute distress - HEENT HEENT: Atraumatic - Neck Neck: Supple, no meningeal sign - Cardiac Cardiac: RRR - Respiratory Respiratory: No respiratory distress, Clear bilaterally - Abdomen Abdomen: Non tender, Non distended - Derm Derm: Normal color, Warm and dry - Extremities Extremities: No deformity - Neuro Neuro: Alert and oriented X 3 - Psych Psych: Normal mood, Normal affect Results - Vitals Vitals: Oxygen O2 Source Room air - Labs Labs: Laboratory Tests 01/09/21 01/09/21 01/09/21 10:15 10:15 10:15 WBC 6.2 RBC 4.91 Hgb 12.8 Hct 41.3 MCV 84.1 MCH 26.1 L MCHC 31.0 L RDW 15.1 H Plt Count 216 MPV 9.6 Neut # (Auto) 3.5 Lymph # (Auto) 1.9 [place] # (Auto) 0.4 Eos # (Auto) 0.3 Baso # (Auto) 0.1 Absolute Nucleated RBC 0.00 Nucleated RBC % 0.0 Sodium 137 Potassium 4.2 Chloride 99 L Carbon Dioxide 28 Anion Gap 10.0 BUN 28 H Creatinine 1.2 H Estimated GFR (MDRD) 45 L Glucose 104 H Calcium 9.3 Total Bilirubin 0.5 AST 17 ALT 11 Alkaline Phosphatase 59 Troponin I High Sens 14.4 Total Protein 6.8 Albumin 4.1 Globulin 2.7 Albumin/Globulin Ratio 1.5 Lipase 43 PD MEDICAL DECISION MAKING - ED course ED course: Patient admitted to obs under dr. lagos for echo tomorrow. Departure - Departure Disposition: ED Place in Observation Clinical Impression: Pre-syncope Condition: Stable Discharge Date/Time: 01/09/21 13:06
[2021-01-09] MEDS ORDERED: SODIUM CHLORIDE FLUSH 0.9% 10 ML SYRINGE IVP PRN (12:20)
--- NOTE | 2021-01-09 12:29 | HISTORY & PHYSICAL EXAMINATION ---
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 She was seated at home reading a book when she stood up and lost her balance. She described a sensation like the room tilting. She did not completely pass out. She denies a previous occurrence of this. Waking up this morning there was nothing out of the ordinary about her daily routine. She sees a primer expeditor and drier by name Dr. Ye at the [facility] and was supposed to have a 2D echocardiogram done this week. As a result of this presentation she is being admitted to have the echocardiogram done sooner. At bedside she is resting comfortably. She denied chest pain, dyspnea, abdominal pain, nausea, vomiting, fever or chills. The rest of her work-up was unremarkable. History - Past Medical History Cardiovascular: reports: Hypertension, Other Respiratory: reports: COPD Neuro: reports: None Endocrine/Autoimmune: reports: None GI: reports: None RED CAP: reports: None : reports: Incontinence, Nocturia, Frequency HEENT: reports: Dental implants Psych: reports: None Musculoskeletal: reports: Other Derm: reports: None MRSA Hx?: No Other Past Medical History: aortic arch adn abdominal anuerysms - Past Surgical History General: reports: Appendectomy /RED CAP: reports: Tubal ligation Cardiovascular: reports: AAA, Other - Family & Social History Family History Comment/Other: The patient's father who was a smoker from lung cancer at age 50. Her mother from renal failure and also had lupus. Social History Notes: She lives at home with her she smoked for 40 years but quit 7 years ago. Occasionally drinks a glass of wine. She does not use any recreational substances. - POLST Patient has POLST: No POLST Status: Full Code Meds/Allgy - Home Medications Home Medications: Ambulatory Orders Medication Instructions Recorded Confirmed Metoprolol Succinate 50 mg PO DAILY 08/08/15 01/09/21 lisinopriL [Lisinopril] 20 mg PO DAILY 11/02/18 01/09/21 Aspirin EC [Ecotrin] 81 mg PO DAILY 01/09/21 01/09/21 - Allergies Allergies/Adverse Reactions: Allergies Allergy/AdvReac Type Severity Reaction Status Date / Time Penicillins Allergy Rash Verified 01/09/21 09:58 Review of Systems - Constitutional Constitutional: denies: Fatigue, Fever, Chills, Weakness, Poor appetite - Eyes Eyes: denies: Pain, Vision loss - Ears, Nose & Throat Ears, Nose & Throat: denies: Ear pain, Sore throat - Cardiovascular Cariovascular: reports: Lightheadedness. denies: Irregular heart rate, Palpitations, Chest pain, Edema, Syncope, Exertional dyspnea - Respiratory Respiratory: denies: Cough, SOB at rest, SOB with exertion - Gastrointestinal Gastrointestinal: denies: Abdominal pain, Abdominal distention, Constipation, Diarrhea, Nausea, Vomiting, Coffee grounds emesis, Reflux/heartburn - Genitourinary Genitourinary: denies: Dysuria, Frequency, Urgency, Hematuria - Musculoskeletal Musculoskeletal: denies: Muscle pain, Back pain, Muscle aches - Integumentary Integumentary: denies: Rash, Pruritis, Lesions - Neurological Neurological: denies: General weakness, Focal weakness, Headache - Psychiatric Psychiatric: denies: Depression, Anxiety - Endocrine Endocrine: denies: Polyuria, Polydypsia - Hematologic/Lymphatic Hematologic/Lymphatic: denies: Anemia, Bruising, Petechiae Prior Level of Functionality: She is independent of activities of daily living. Exam - Vital Signs Vital Signs: Vital Signs x48h Temp Pulse Pulse Pulse Pulse Resp BP 01/09/21 10:25 57 L 55 L 55 L 01/09/21 09:54 36.3 C L 60 16 145/44 H BP BP BP Pulse Ox 01/09/21 10:25 116/56 L 126/58 L 126/48 L 01/09/21 09:54 100 - Physical Exam General Appearance: positive: No acute distress, Alert Eyes Bilateral: positive: PERRL, EOMI ENT: positive: No signs of dehydration Neck: positive: No JVD, Trachea midline Respiratory: positive: Chest non-tender, No respiratory distress, Breath sounds nml. negative: Wheezes, Rales, Rhonchi Cardiovascular: positive: Regular rate & rhythm, Systolic murmur Abdomen: positive: Non-tender, No organomegaly, Nml bowel sounds, No distention. negative: Guarding, Rebound Back: positive: Nml inspection Skin: positive: Color nml, No rash, Warm, Dry Extremities: positive: Non-tender, Full ROM, Nml appearance, No pedal edema Neurologic/Psychiatric: positive: Oriented x3, Mood/affect nml Conclusion/Plan - Problem List (1) Pre-syncope Conclusion/Plan: 2d echo ordered for 01/10/21 morning Orthostatics vitals negative Will continue gentle IV hydration (2) Hypertension Conclusion/Plan: Will hold metoprolol and lisinopril for now. Gently hydrating patient with normal saline - Lab Results Fish Bones: 01/09/21 10:15 01/09/21 10:15 Core Measures - Anticipated LOS I expect patient to be DC'd or transferred within 96 hours.: Yes - DVT/VTE - Prophylaxis VTE/DVT Device ordered at admit?: Yes VTE/DVT Prophylaxis med ordered at admit?: Yes
[2021-01-09] MEDS: SODIUM CHLORIDE 0.9% 1,000 ML IV SCH (13:47)
[2021-01-09 14:14] LABS: B. PARAPERTUSSIS- RESP PCR PAN NOT DETECTED; B. PERTUSSIS- RESP PCR PANEL NOT DETECTED; C. PNEUMONIAE- RESP PCR PANEL NOT DETECTED; CORONAVIRUS 229E-RESP PCR NOT DETECTED; CORONAVIRUS HKU1-RESP PCR NOT DETECTED; CORONAVIRUS NL63-RESP PCR NOT DETECTED; CORONAVIRUS OC43-RESP PCR NOT DETECTED; HUMAN METAPNEUMOVIRUS NOT DETECTED; INFLUENZA A- RESP PCR PANEL NOT DETECTED; INFLUENZA B - RESP PCR PANEL NOT DETECTED; M. PNEUMONIAE- RESP PCR PANEL NOT DETECTED; PARAINFLUENZA VIRUS 1 NOT DETECTED; PARAINFLUENZA VIRUS 2 NOT DETECTED; PARAINFLUENZA VIRUS 3 NOT DETECTED; PARAINFLUENZA VIRUS 4 NOT DETECTED; RHINOVIRUS/ENTEROVIRUS NOT DETECTED; RSV- RESP PCR PANEL NOT DETECTED; SARS-CoV-2 -RESP PCR PANEL NOT DETECTED
[2021-01-09] MEDS: SODIUM CHLORIDE FLUSH 0.9% 10 ML SYRINGE IVP SCH (17:19)
--- NOTE | 2021-01-09 22:51 | PROVIDER PROGRESS NOTE ---
Photographer Motion Picture Note - Photographer Motion Picture Note Photographer Motion Picture Note: Reviewed letter from [facility] vascular surgery attending, Dr. Aiden Murray, referencing events related to patient's history of ruptured thoracoabdominal aortic aneurysm using endovascular stents and bypass grafting, status post stent graft components with ruptured residual aneurysmal sac leading to life-threatening situation requiring immediate attention and subsequent transfer to [facility]. Letter states instructions for immediate and unconditional transfer to [facility] for any symptoms suggestive of abdominal aortic aneurysm rupture or leak. Patient presented with syncopal symptoms, but no chest pain, no significant hypotension, with hemoglobin hematocrit levels within normal parameters. However, given the significant history, having reviewed this letter, I did reach out to [facility] transfer [place] and was able to speak to Dr. Ayala who is on-call for vascular surgery who was able to review Dr. Murray letter and medical records. Consensus at this time is that given that the patient appears to be relatively stable and symptoms are more likely related to first-degree heart block and bradycardia, without any concerning evidence to suggest an acute aortic aneurysm we can defer management to outpatient. He will help facilitate a follow-up appointment. He does note that the patient is due for a follow-up surveillance CT scan, and we did discuss performing a CT with contrast here at [facility] versus deferring until after discharge. Ultimately he felt either way would be fine, but we decided on holding off to allow [facility] faculty to obtain optimal images per their own protocol and have best access for reviewing images with her. We will continue to monitor the patient closely, and should any clinical parameters change will alter the plan accordingly.
[2021-01-10] MEDS: SODIUM CHLORIDE FLUSH 0.9% 10 ML SYRINGE IVP SCH ×2 (00:31→09:55)
[2021-01-10] MEDS: SODIUM CHLORIDE 0.9% 1,000 ML IV SCH (01:31)
[2021-01-10 05:50] LABS: BASOPHILS # (AUTO) 0.1 10^3/uL (0.0-0.1); BASOPHILS % (AUTO) 1.1 %; EOSINOPHILS # (AUTO) 0.3 10^3/uL (0.0-0.7); EOSINOPHILS % (AUTO) 6.2 %; HCT - HEMATOCRIT 34.5 % (37.0-47.0); LYMPHOCYTES # (AUTO) 1.7 10^3/uL (1.5-3.5); LYMPHOCYTES % (AUTO) 31.8 %; MEAN CORPUSCULAR HEMOGLOBIN 26.7 pg (27.0-31.0); MEAN CORPUSCULAR HGB CONC 31.9 g/dL (32.0-36.0); MEAN CORPUSCULAR VOLUME 83.7 fL (81.0-99.0); MEAN PLATELET VOLUME 10.4 fL (7.9-10.8); MONOCYTES # (AUTO) 0.3 10^3/uL (0.0-1.0); MONOCYTES % (AUTO) 5.5 %; NEUTROPHILS % (AUTO) 55.2 %; PLT - PLATELET COUNT 191 10^3/uL (130-450); RED BLOOD COUNT 4.12 10^6/uL (4.20-5.40); WHITE BLOOD COUNT 5.5 x10^3/uL (4.8-10.8)
[2021-01-10 05:55] LABS: CALCIUM 8.8 mg/dL (8.5-10.3); POTASSIUM 4.5 mmol/L (3.5-5.0)
[2021-01-10 07:23] LABS: MAGNESIUM 1.9 mg/dL (1.7-2.8); PHOSPHORUS 3.7 mg/dL (2.5-4.6)
[2021-01-10 09:02] VITALS: BP 129/52
--- NOTE | 2021-01-10 10:20 | DISCHARGE SUMMARY ---
Discharge Summary Admit Date: 01/09/21 Discharge Date: 01/10/21 Discharging Provider: Yonatan Toney Primary Care Provider: Mala Flores Condition at Discharge: Stable Discharge Disposition: 01 Home, Self Care - DIAGNOSES Admission Diagnoses: Presyncope Hypertension Discharge Diagnoses with Status of Each Condition: Presyncope: Acute. Resolved. 2D echo unremarkable Hypertension: Chronic. 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 She was seated at home reading a book when she stood up and lost her balance. She described a sensation like the room tilting. She did not completely pass out. She denies a previous occurrence of this. Waking up this morning there was nothing out of the ordinary about her daily routine. She sees a boil off worker by name Dr. Ye at the [facility] and was supposed to have a 2D echocardiogram done this week. As a result of this presentation she is being admitted to have the echocardiogram done sooner. At bedside she is resting comfortably. She denied chest pain, dyspnea, abdominal pain, nausea, vomiting, fever or chills. The rest of her work-up was unremarkable. - HOSPITAL COURSE Hospital Course: Patient was observed overnight. At one point in the night it was reported that she had short 15 beat run of V. tach for which she was asymptomatic. She was also bradycardic throughout her hospital stay. In the course of this hospital stay her metoprolol was held. I advised the patient to continue holding the metoprolol until she sees boil off worker. I discussed with the patient's boil off worker by name Kait Ye with [facility]. She recommended the patient call the clinic today and schedule for follow-up a ppointment tomorrow. This was relayed to the patient. She may resume taking her lisinopril for blood pressure control. A 2D echocardiogram was done on 01/10/21 with the following results. Overall l eft ventricular systolic function is normal with an ejection fraction of 65 to 70%. Diastolic function is indeterminate. No regional wall motion abnormalities is seen. The right ventricle is normal in size and function. The left atrium is moderate increased in volume index. The right atrial size is normal. The aortic valve is trileaflet. There is no evidence of aortic stenosis. There is no evidence of aortic regurgitation. The RVSP at rest is 39 mmHg. There is no pericardial effusion noted. There is no mass or thrombus identified. There is no pleural effusion noted. Dr. Ayala a vascular surgeon on-call for the patient's vascular surgeon Dr. Murray Was contacted. He was in agreement that the patient appeared to be relatively stable and symptoms were more likely related to a first-degree heart block and bradycardia without concerning evidence to suggest an acute aortic aneurysm. Recommendations were to continue with a 2D echocardiogram as planned and for the patient to follow-up in the outpatient setting. At follow-up they would do a CT scan for further surveillance at follow up This was relayed to the patient who expressed understanding and is in agreement with the plan. The patient was discharged in stable condition. - ALLERGIES Allergies/Adverse Reactions: Allergies Allergy/AdvReac Type Severity Reaction Status Date / Time Penicillins Allergy Rash Verified 01/09/21 09:58 - MEDICATIONS Home Medications: Ambulatory Orders Medication Instructions Recorded Confirmed Metoprolol Succinate 50 mg PO DAILY 08/08/15 01/09/21 lisinopriL [Lisinopril] 20 mg PO DAILY 11/02/18 01/09/21 Aspirin EC [Ecotrin] 81 mg PO DAILY 01/09/21 01/09/21 - PHYSICAL EXAM AT DISCHARGE General Appearance: positive: No acute distress, Alert Eyes Bilateral: positive: PERRL, EOMI ENT: positive: No signs of dehydration Neck: positive: No JVD, Trachea midline Respiratory: positive: Chest non-tender, No respiratory distress, Breath sounds nml. negative: Wheezes, Rales, Rhonchi Cardiovascular: positive: Bradycardia (regular rhythm), Systolic murmur Abdomen: positive: Non-tender, Nml bowel sounds, No distention. negative: Guarding, Rebound Skin: positive: Color nml, No rash Extremities: positive: Non-tender, Full ROM, No pedal edema Neurologic/Psychiatric: positive: Oriented x3, Mood/affect nml - LABS Result Diagrams: 01/10/21 05:29 01/10/21 05:29 - TIME SPENT Time Spent in Discharge (Minutes): 25
--- NOTE | 2021-01-10 10:24 | Discharge Plan ---
Discharge Plan Problem Reviewed?: Yes Disposition: Home, Self Care Condition: Stable Diet: Cardiac Activity Restrictions: Activity as Tolerated Health Concerns: You presented to the ED yesterday with a presyncopal episode. As a result you were admitted for a 2D echocardiogram. This was done and it was noted that your left ventricle systolic function is normal and your ejection fraction is normal. The echocardiogram overall was unremarkable for any significant or concerning findings. You have been slightly bradycardic with a heart rate of 52 while in the hospital. Your metoprolol was held. I would advise that you continue to hold your metoprolol until you see your rate clerk. You may take your other antihypertensive medications. Your Vascular Surgeon was contacted and recommendation was for you to follow-up with them in the outpatient setting as previously planned. Instructions were also for you to follow-up with your rate clerk as soon as possible. Pain to you and you expressed understanding and agreeable with the plan. Plan of Treatment: You presented to the ED yesterday with a presyncopal episode. As a result you were admitted for a 2D echocardiogram. This was done and it was noted that your left ventricle systolic function is normal and your ejection fraction is normal. The echocardiogram overall was unremarkable for any significant or concerning findings. You have been slightly bradycardic with a heart rate of 52 while in the hospital. Your metoprolol was held. I would advise that you continue to hold your metoprolol until you see your rate clerk. You may take your other antihypertensive medications. Your Vascular Surgeon was contacted and recommendation was for you to follow-up with them in the outpatient setting as previously planned. Instructions were also for you to follow-up with your rate clerk as soon as possible. Pain to you and you expressed understanding and agreeable with the plan. Care Goals: You presented to the ED yesterday with a presyncopal episode. As a result you were admitted for a 2D echocardiogram. This was done and it was noted that your left ventricle systolic function is normal and your ejection fraction is normal. The echocardiogram overall was unremarkable for any significant or concerning findings. You have been slightly bradycardic with a heart rate of 52 while in the hospital. Your metoprolol was held. I would advise that you continue to hold your metoprolol until you see your rate clerk. You may take your other antihypertensive medications. Your Vascular Surgeon was contacted and recommendation was for you to follow-up with them in the outpatient setting as previously planned. Instructions were also for you to follow-up with your rate clerk as soon as possible. Pain to you and you expressed understanding and agreeable with the plan. Assessment: You presented to the ED yesterday with a presyncopal episode. As a result you were admitted for a 2D echocardiogram. This was done and it was noted that your left ventricle systolic function is normal and your ejection fraction is normal. The echocardiogram overall was unremarkable for any significant or concerning findings. You have been slightly bradycardic with a heart rate of 52 while in the hospital. Your metoprolol was held. I would advise that you continue to hold your metoprolol until you see your rate clerk. You may take your other antihypertensive medications. Your Vascular Surgeon was contacted and recommendation was for you to follow-up with them in the outpatient setting as previously planned. Instructions were also for you to follow-up with your rate clerk as soon as possible. Pain to you and you expressed understanding and agreeable with the plan. No Smoking: If you smoke, Please STOP! Call for help. Follow-up with: Mala Flores PA-C [Primary Care Provider] -
== END 2021-01-10 11:19 | disposition home or self-care (01) ==
LOC: ED 09:50 → MS2 12:20
PROVIDERS: ADMIT Internal Medicine; ATTEND Internal Medicine
DX: R55 Syncope and collapse (principal); I10 Essential (primary) hypertension; R00.1 Bradycardia, unspecified; I47.2 Ventricular tachycardia; Z20.822 Contact with and (suspected) exposure to COVID-19; E78.5 Hyperlipidemia, unspecified; J44.9 Chronic obstructive pulmonary disease, unspecified; Z87.891 Personal history of nicotine dependence; Z98.890 Other specified postprocedural states
CPT/HCPCS: 36415; 71045; 80048; 80053; 83690; 83735; 84100; 84484; 85025; 87631; 93005; 93306; 99284; 99285; G0378; 0202U

== ENCOUNTER 2021-06-06 13:06 | Outpatient (CLI) | payer MEDICARE, OTHER | END 2021-06-06 13:07 | disposition home or self-care (01) | LOC: COV 13:06 | PROVIDERS: ATTEND Family Medicine | DX: R05.9 Cough, unspecified (principal); R09.81 Nasal congestion; J34.89 Other specified disorders of nose and nasal sinuses; Z20.822 Contact with and (suspected) exposure to COVID-19 ==

== ENCOUNTER 2021-12-22 11:37 | Outpatient (CLI) | payer MEDICARE, OTHER ==
--- NOTE | 2021-12-22 15:57 | XRAY Report ---
PROCEDURE: Thoracic Spine 3 View INDICATIONS: BACK PAIN,THORACIC REGION TECHNIQUE: 3 views of the thoracic spine were acquired. COMPARISON: None. FINDINGS: Bones: Median sternotomy wires. No fractures or dislocations. No suspicious bony lesions. 12 pairs of ribs are noted, and appear intact where visualized. Mild degenerative disc changes noted througho ut the thoracic spine. Mild facet hypertrophy noted throughout the thoracic spine. Soft tissues: No paravertebral stripe thickening. Aortic stent graft noted. IMPRESSION: 1. Multilevel degenerative disc disease. 2. Multilevel facet arthropathy. 3. No fracture. No acute osseous lesion. If there is continued clinical concern for pathology, then M RI should be considered for further evaluation. Reviewed by: Angeles Akins MD, PhD on 12/22/2021 3:56 PM PDT Approved by: Angeles Akins MD, PhD on 12/22/2021 3:56 PM PDT Station ID: [id number]
== END 2021-12-22 11:38 | disposition home or self-care (01) ==
LOC: DI 11:37
PROVIDERS: ATTEND Physician Assistant Medical
DX: M51.34 Other intervertebral disc degeneration, thoracic region (principal); M47.814 Spondylosis without myelopathy or radiculopathy, thoracic region